=== PATIENT | female | born 1945 | race Caucasian/White ===

== ENCOUNTER 2025-07-17 08:43 | Outpatient (REF) | payer OTHER, SELFPAY ==
--- OUTSIDE RECORDS SUMMARY | 2025-07-15 10:45 | XMS_ITS | Encounter Summary ---
Author Organization [email or web address] Address [address] [facility] 7[address] [place] [address] Care Team Providers Care Client Solutions Manager Name Role Phone Shiraz Waggoner MD Primary Care Prov ider Encounter Details Date Type Department Care Team (Latest Contact Info) Description 07/15/2025 10:45 AM EST Office Visit [facility] [address] [place], [place] [id number] Shiraz Waggoner MD [address] [place] [address] Encounter for medical examination to establish care (Primary Dx); Acquired hypothyroidism Social History Tobacco Use Types Packs/Day Years Used Date Smoking Tobacco: Never Smokeless Tobacco: Never Tobacco Cessation:Counseling Given: Not Answered Depression Answer Date Recorded Patient Health Questionnaire-9 Score 3 07/15/2025 Patient Health Questionnaire-9 Score 3 07/15/2025 Last PHQ-9: Questionnaire Data Not on file 1 09/14/2024 Housing Stability Answer Date Recorded What is your housing situation today? I have cee shah 07/15/[address] you li ve. Do you have problems with any of the following? None of the above 07/15/2025 Food Insecurity Answer Date Recorded Within the past 12 months, y ou worried that your food would run out before you got money to buy more: Never True 07/15/2025 Within the past 12 months,th e food you bought just didn't last and you didn't have enough money to get more: Never True Transportation Answer Date Recorded In the past 12 months, has l ack of transportation kept you from medical appts, meetings, work or from getting things needed for daily living? No 07/15/2025 Utilities Answer Date Recorded In the past 12 months, has t he electric, gas, oil or water company threatened to shut off services in your home? No 07/15/2025 Depression Answer Date Recorded Patient Health Questionnaire-2 Score 0 07/15/2025 Internet Access Answer Date Recorded Internet Access Q1 Yes 07/15/2025 Internet Access Q2 Not on file 07/15/2025 Comments Unknown Sex and Gender Information Value Date Recorded Sex Assigned at Female 05/19/2025 4:17 PM EDT Legal Sex Female 4:11 PM EDT Gender Identity Female 07/11/2025 10:03 AM EST Sexual Orientation Straight 07/11/2025 10 :03 AM EST documented as of this encounter Last Filed Vital Signs Vital Sign Reading Time Taken Comments Blood Pressure 142/71 07/15/2025 10:53 AM EST Pulse 63 07/15/2025 10:53 AM EST Temperature 37.1 C (98.7 F) 07/15/2025 10:53 AM EST Respiratory Rate 16 07/15/2025 10:53 AM EST Oxygen Saturation - - Inhaled Oxygen Concentration - - Weight 52.4 kg (115 lb 9.6 oz) 07/15/2025 10:53 AM EST Height 149.9 cm (4' 11 ) 07/15/2025 10:53 AM EST Body Mass Index 23.35 07/15/2025 10:53 AM EST documented in this encounter Functional Status * Over the past 2 weeks, how often have you been bothered by any of the following problems? Question Answer Date of Assessment Author Patient Health Questionnaire-2 Score 0 06/27 11:58 AM Tanja Tay MA * Little interest or pleasure in doing things Answer Date of Assessment Author Not at all 07/15/2025 11:58 AM Darling Tay MA * Feeling down, depressed, or hopeless Answer Date of Assessment Author Not at all 07/15/2025 11:58 AM Darling Tay MA * Trouble falling or staying asleep, or sleeping too much Answer Date of Assessment Author Several days 07/15/2025 11:58 AM Darling Tay MA * Feeling tired or having little energy Answer Date of Assessment Author Several days 07/15/2025 11:58 AM Darling Tay MA * Poor appetite or overeating Answer Date of Assessment Author Several days 07/15/2025 11:58 AM Darling Tay MA * Feeling bad about yourself - or that you are a failure or have let yourself or your family down Answer Date of Assessment Author Not at all 07/15/2025 11:58 AM Darling Tay MA * Trouble concentrating on things, such as reading the newspaper or watching television Answer Date of Assessment Author Not at all 07/15/2025 11:58 AM Darling Tay MA * Moving or speaking so slowly that other people could have noticed? Or the opposite - being so fidgety or restless that you have been moving around a lot more than usual. Answer Date of Assessment Author Not at all 07/15/2025 11:58 AM Darling Tay MA * Thoughts that you would be better off or hurting yourself in some way Answer Date of Assessment Author Not at all 07/15/2025 11:58 AM Darling Tay MA * Patient Health Questionnaire-9 Score Answer Date of Assessment Author 3 07/15/2025 11:58 AM Darling Tay MA * How difficult have these problems made it for you to do your work, take care of things at home, or get along with other people? Answer Date of Assessment Author Not difficult at all 07/15/2025 11:58 AM Tanja Desai MA documented as of this encounter Progress Notes * Shiraz Warren MD - 07/15/2025 10:45 AM EST Subjective Patient ID: Annamarie Reynolds is a 79 y.o. female who presents for No chief complaint on file.. Thyroid Problem Presents for follow-up visit. Patient reports no constipation, depressed mood, fatigue, heat intolerance, palpitations, weight gain or weight loss. Review of Systems Constitutional: Negative for fatigue, weight gain and weight loss. Cardiovascular: Negative for palpitations. Gastrointestinal: Negative for constipation. Endocrine: Negative for heat intolerance. Objective Physical Exam Constitutional: Appearance: Normal appearance. Cardiovascular: Rate and Rhythm: Normal rate. Heart sounds: No murmur heard. Pulmonary: Effort: Pulmonary effort is normal. No respiratory distress. Breath sounds: No stridor. No wheezing or rhonchi. Abdominal: General: Abdomen is flat. There is no distension. Palpations: There is no mass. Tenderness: There is no abdominal tenderness. Hernia: No hernia is present. Neurological: General: No focal deficit present. Mental Status: She is alert and oriented to person, place, and time. Psychiatric: Mood and Affect: Mood normal. Behavior: Behavior normal. Assessment/Plan Problem List Items Addressed This Visit Encounter for medical examination to establish care - Primary Last pcp visit 1 year ago Er visit on the past year:- Hospitalization: naqvi pouch 2020, reverse naqvi pouch 2021 Pmhx: cardiac stent 2004, hypothyroidism Pshx: as above All: - Meds: asa 81mg, multivitamin, levothyroxine 50mcg A0 Relevant Orders CBC auto differential Comprehensive Metabolic Panel Hemoglobin A1c TSH W/Reflex to FT4 Lipid Panel, Standard Hepatitis C Antibody with Reflex to HCV, RNA, Quantitative, Real-Time PCR Vitamin D, 25-Hydroxy, Total, Immunoassay Vitamin B12 (Cobalamin) and Folate Panel, Serum Acquired hypothyroidism Clinically euthyroid, will order new labs for guidance of therapy Relevant Medications aspirin 81 MG EC tablet levothyroxine (Synthroid) 50 MCG tablet documented in this encounter Miscellaneous Notes * Assessment & Plan Note - Shiraz Warren MD - 07/15/2025 1:58 PM ESTAssociated Problem(s): Acquired hypothyroidism Clinically euthyroid, will order new labs for guidance of therapy * Assessment & Plan Note - Shiraz Warren MD - 07/15/2025 11:22 AM ESTAssociated Problem(s): Encounter for medical examination to establish care Last pcp visit 1 year ago Er visit on the past year:- Hospitalization: naqvi pouch 2020, reverse naqvi pouch 2021 Pmhx: cardiac stent 2004, hypothyroidism Pshx: as above All: - Meds: asa 81mg, multivitamin, levothyroxine 50mcg A0 documented in this encounter Plan of Treatment Scheduled Orders Name Type Priority Associated Diagnoses Orde r Schedule CBC auto differential Lab Routine Encounter for medical examination to establish care Expected: 07/15/2025 (Approximate), Expires: 07/15/2026 Comprehensive Metabolic Panel Lab Routine Encounter for medical examination to establish care Expected: 07/15/2025 (Approximate), Expires: 07/15/2026 Hemoglobin A1c Lab Routine Encounter for medical examination to establish care Expected: 07/15/2025 (Approximate), Expires: 07/15/2026 TSH W/Reflex to FT4 Lab Routine Encounter for medical examination to establish care Expected: 07/15/2025 (Approximate), Expires: 07/15/2026 Lipid Panel, Standard Lab Routine Encounter for medical examination to establish care Expected: 07/15/2025 (Approximate), Expires: 07/15/2026 Hepatitis C Antibody with Reflex to HCV, RNA, Quantitative, Real-Time PCR Lab Routine Encounter for medical examination to establish care Expected: 07/15/2025, Expires: 07/15/2026 Vitamin D, 25-Hydroxy, Total, Immunoassay Lab Routine Encounter for medical examination to establish care Expected: 07/15/2025 (Approximate), Expires: 07/15/2026 Vitamin B12 (Cobalamin) and Folate Panel, Serum Lab Routine Encounter for medical examination to establish care Expected: 07/15/2025 (Approximate), Expires: 07/15/2026 documented as of this encounter Visit Diagnoses Diagnosis Encounter for medical examination to establish care- Primary Acquired hypothyroidism Unspecified hypothyroidism documented in this encounter Additional Health Concerns Assessment Noted Time PHQ-9 Depression Total Score: 3 07/15/20 25 11:58 AM EST documented as of this encounter Care Teams Client Solutions Manager Relationship Specialty Start Date End Date Shiraz Waggoner MD [address] [place] [phone] PCP - General Internal Medicine 07/15/25 documented as of this encounter
--- OUTSIDE RECORDS SUMMARY | 2025-07-17 08:49 | XMS_ITS | Clinical Summary ---
Author Organization [employer] Address [address] [facility] [address] [place] [address] Care Team Providers Care Flexographic Printing Press Operator Name Role Phone Shiraz Waggoner MD Primary Care Prov ider Allergies No known active allergies Medications aspirin 81 MG EC tablet Take 81 mg by mouth Once per day. Active levothyroxine (Synthroid) 50 MCG tablet Take 1 tablet (50 mcg) by mouth before breakfast. 30 tablet 2 07/15/2025 6 Active Active Problems Problem Noted Date Diagnosed Date Encounter for medical examination to establish c are 07/15/2025 Assessment & Plan (07/15/2025 1:57 PM EST): Last pcp visit 1 year ago Er visit on the past year:- Hospitalization: naqvi pouch 2020, reverse naqvi pouch 2021 Pmhx: cardiac stent 2004, hypothyroidism Pshx: as above All: - Meds: asa 81mg, multivitamin, levothyroxine 50mcg A0 Acquired hypothyroidism 07/15/2025 Assessment & Plan (07/15/2025 1:58 PM EST): Clinically euthyroid, will order new labs for guidance of therapy Encounters Date Type Department Care Team Description 07/15/2025 10:45 AM EST Office Visit [facility] MED [facility] [address] [place] [address] Shiraz Waggoner MD Encounter for medical examination to establish care (Primary Dx); Acquired hypothyroidism 07/15/2025 Travel 07/14/2025 Telephone [facility] [address] [place] [address] Shiraz Waggoner MD chart prep 07/08/2025 Patient Outreach [facility] [address] [place] [address] Fletcher Whatley MD Pre-visit Planning (Pre visit planning LVM ) 05/19/2025 Telephone [facility] [address] [facility] [place] [address] Fletcher Whatley MD Appointment Request from Last 3 Months Social History Tobacco Use Types Packs/Day Years [...] Orientation Straight 07/11/2025 10 :03 AM EST Last Filed Vital Signs Vital Sign Reading [...] Mass Index 23.35 07/15/2025 10:53 AM EST Plan of Treatment Health Maintenance Due Date Last Done Comments Hepatitis C Screening 1963 DTaP/Tdap/Td Vaccines (1 - Tdap) 1965 Pneumococcal Vaccine: 50+ Years (1 of 1 - PCV) 1996 Zoster Vaccines (1 of 2) 1996 RSV Patients and Patients Aged 60 years or older (1 - 1-dose 75+ series) 2021 COVID-19 Vaccine ( - 2024-2 6 season) 2025 Influenza Vaccine (#1) 2025 Alcohol/Substance Use Screening 07/15/2026 07/15/2025 Depression Screening 07/15/2026 07/15/2025, 07/15/2025 SDOH Screening 07/15/2026 07/15/2025 Tobacco Screening 07/15/2026 07/15/2025 HIB Vaccines Aged Out No longer eligi ble based on patient's age to complete this topic HPV Vaccines Aged Out No longer eligi ble based on patient's age to complete this topic Hepatitis A Vaccines Aged Out No long er eligible based on patient's age to complete this topic Hepatitis B Vaccines Aged Out No long er eligible based on patient's age to complete this topic IPV Vaccines Aged Out No longer eligi ble based on patient's age to complete this topic Meningococcal B Vaccine Aged Out No l onger eligible based on patient's age to complete this topic Meningococcal Vaccine Aged Out No diana melanie eligible based on patient's age to complete this topic RSV under 20 months Aged Out No longe r eligible based on patient's age to complete this topic Rotavirus Vaccines Aged Out No longer eligible based on patient's age to complete this topic Insurance Care Teams [employer] Printing Press Operator Relationship Specialty Start Date End Date Shiraz Waggoner MD [address] [place] [id number] PCP - General Internal Medicine 07/15/25
--- OUTSIDE RECORDS SUMMARY | 2025-07-17 08:49 | XMS_ITS | Encounter Summary ---
Author Organization [email or web address] Address [address] [facility] [address], [place] [address] Care Team Providers Care Relief Cook Name Role Phone Unavailable Primary Care Provider Unavailabl e Reason for Visit * Reason Onset Date Comments chart prep 07/14/2025 Encounter Details Date Type Department Care Team ([facility] st Contact Info) Description 07/14/2025 Telephone [facility] [address] [place] [address] Shiraz Waggoner MD [address] [place] [address] chart prep Social History Tobacco Use Types Packs/Day Years Used Date Smoking Tobacco: Never Assessed Depression Answer Date Recorded Patient Health Questionnaire-9 [...] t he electric, gas, oil or water [employer] threatened to shut off services in your [...] AM EST documented as of this encounter Miscellaneous Notes * Telephone Encounter - Tanja Manzanares MA - 07/14/2025 1:42 PM EST Chart Prep Labs: not applicable Images: not applicable Referrals: not applicable Vaccines due: Covid, Flu, PCV20, Tdap, RSV, and Zoster Screenings: not applicable Overdue care gaps: SBIRT, SDOH, and PHQ-9 documented in this encounter Plan of Treatment Not on file documented as of this encounter Visit Diagnoses Not on filedocumented in this encounter
--- OUTSIDE RECORDS SUMMARY | 2025-07-17 08:49 | XMS_ITS | Encounter Summary ---
Author Organization [employer] Address [address] [facility] [address] [place] [address] Care Team Providers Care Cancer Genetic Counselor Name Role Phone Shiraz Waggoner MD Primary Care Prov ider Encounter Details Date Type Department Care Team (Latest Contact Info) Description 07/15/2025 Travel Social History Tobacco Use Types Packs/Day Years Used Date Smoking Tobacco: Never Smokeless Tobacco: Never Depression Answer Date Recorded Patient Health Questionnaire-9 Score 3 07/15/2025 Patient Health Questionnaire-9 Score 3 07/15/2025 Last PHQ-9: Questionnaire Data Not on file 1 09/14/2024 Housing Stability Answer Date Recorded What is your housing situation today? I have ceenano shah 07/15/[address] you [...] AM EST documented as of this encounter Functional Status * Over the [...] Not difficult at all 07/15/2025 11:58 AM EST Tanja Kramer MA documented as of this encounter Plan of Treatment Not on file documented as of this encounter Visit Diagnoses Not on filedocumented in this encounter Additional Health Concerns Assessment Noted Time PHQ-9 Depression Total Score: 3 07/15/20 11:58 AM EST documented as of this encounter Care Teams Cancer Genetic Counselor Relationship Specialty Start Date End Date Shiraz Waggoner MD [address] [place] [phone] PCP - General Internal Medicine 07/15/25 documented as of this encounter
[2025-07-17 14:23] LABS: MANUAL DIFF FLAG NO
[2025-07-17 14:48] LABS: Hematocrit 39.8 % (37.0-47.0); Hemoglobin 13.0 g/dl (12.0-16.0); Imm Gran Abs Auto 0.02 X10*3/uL (0.00-0.03); Imm Gran Pct Auto 0.4 % (0.0-0.4); Lymphocytes Absolute Auto 1.1 X10*3/uL (1.2-4.9); Mean Corpuscular HGB Conc 32.7 g/dl (31.0-35.0); Mean Corpuscular Hemoglobin 28.5 pg (27.0-33.0); Mean Corpuscular Volume 87.3 fL (80.0-98.0); NRBC Abs Auto 0.000 X10*3/uL (0.0-0.012); NRBC Pct Auto 0.0 /100WBC (0.0-0.2); Platelet Count 185 X10*3/uL (160-400); Red Blood Count 4.56 X10*6/uL (4.20-5.50); White Blood Count 5.0 X10*3/uL (4.8-10.8)
[2025-07-17 14:57] LABS: Alanine Aminotransferase 15 U/L (0-31); Albumin Level 4.5 g/dL (3.5-5.0); Alkaline Phosphatase 76 U/L (39-117); Anion Gap 10 (12-20); Aspartate Amino Transferase 25 U/L (5-31); Blood Urea Nitrogen 12 mg/dL (9-16); Calcium 9.1 mg/dL (8.4-10.2); Carbon Dioxide 28 mmol/L (22-29); Chloride 108 mmol/L (96-108); Cholesterol 179 mg/dL (<200); Estimated Glomerular Filt Rate > 60; HDL Cholesterol 58 mg/dL (>40); Potassium 3.9 mmol/L (3.3-5.1); Sodium 142 mmol/L (135-145); Total Protein 7.0 g/dL (6.5-8.0); Triglycerides 92 mg/dL (<150)
[2025-07-17 15:30] LABS: Folate 10.7 ng/mL (> or = 4.0); Vitamin B12 390 pg/mL (200-900)
[2025-07-18 08:51] LABS: ~HepC Num1 0.15 S/CO (0.00-0.79); ~Hepatitis C Antibody Nonreactive (Nonreactive)
== END 2025-07-17 08:44 | disposition home or self-care (01) ==
LOC: HO.CHCLDS 08:43
PROVIDERS: Visit Provider Internal Medicine
DX: Z00.00 Encounter for general adult medical examination without abnormal findings (principal); Z13.1 Encounter for screening for diabetes mellitus; Z13.29 Encounter for screening for other suspected endocrine disorder; Z13.6 Encounter for screening for cardiovascular disorders
CPT/HCPCS: 36415; 80053; 80061; 82306; 82607; 82746; 83036; 84443; 85025; 86803